=== PATIENT | female | born 1960 | race Caucasian/White ===

== ENCOUNTER 2017-12-30 21:31 | Emergency (ER) | payer OTHER ==
[~2017-12-30] VITALS: Ht 165.1 cm; Wt 100.0 kg
[2017-12-30 21:33] VITALS: Ht 165.1 cm; Wt 100.0 kg
[2017-12-30] MEDS ORDERED: COUMADIN5 MG PO (21:35)
[2017-12-30] MEDS ORDERED: K-DUR20 MEQ PO (21:36)
[2017-12-30] MEDS ORDERED: KEFLEX500 MG PO (22:25)
[2017-12-30] MEDS ORDERED: HYDROCODON-ACE1 EAC7 PO (22:25)
[2017-12-30 22:43] VITALS: BP 138/78
== END 2017-12-30 22:43 | disposition home or self-care (01) ==
LOC: D.ER 21:31
DX: S51.012A Laceration without foreign body of left elbow, initial encounter (principal); W10.9XXA Fall (on) (from) unspecified stairs and steps, initial encounter; Y93.89 Activity, other specified; Y92.019 Unspecified place in single-family (private) house as the place of occurrence of the external cause